=== PATIENT | female | born 1980 | race Caucasian/White ===

== ENCOUNTER 2017-03-06 22:16 | Emergency (ER) | payer MEDICARE ==
[~2017-03-06] VITALS: Ht 160 cm; Wt 130.0 kg
[2017-03-06] MEDS ORDERED: HYDROCODONE/ACE1 T11 PO (22:30)
[2017-03-06] MEDS ORDERED: XANAX1 MG PO (22:30)
[2017-03-06] MEDS ORDERED: BUSPAR5 MG PO (22:30)
[2017-03-06] MEDS ORDERED: ZOLOFT50 MG PO (22:31)
[2017-03-06] MEDS ORDERED: LIPITOR20 M1 PO (22:31)
[2017-03-06] MEDS ORDERED: ZESTRIL10 M1 PO (22:32)
[2017-03-06] MEDS ORDERED: ZANAFLEX2 MG PO (22:33)
[2017-03-06] MEDS ORDERED: ADDERALL10 MG PO (22:33)
[2017-03-06] MEDS ORDERED: CARVEDILOL3.125 MG PO (22:33)
[2017-03-06] MEDS ORDERED: ALLERGY RELF10 M5 PO (22:33)
[2017-03-06] MEDS ORDERED: OLANZAPINE5 MG PO (22:34)
[2017-03-06] MEDS ORDERED: NOVOLOG FL100 UNIT/M SC (22:35)
[2017-03-06] MEDS ORDERED: LEVEMIR100 UNIT/M SC (22:35)
[2017-03-06 23:04] LABS: URINE BILIRUBIN - DIPSTICK NEGATIVE (NEGATIVE); URINE BLOOD DIPSTICK NEGATIVE (NEGATIVE); URINE CLARITY SLIGHT CLOUDY; URINE COLOR YELLOW; URINE GLUCOSE - DIPSTICK >=1000 mg/dL (NEGATIVE); URINE KETONE NEGATIVE (NEGATIVE); URINE LEUK ESTERASE NEGATIVE (NEGATIVE); URINE NITRITE - DIPSTICK NEGATIVE (Negative); URINE PROTEIN - DIPSTICK NEGATIVE (NEG-TRACE); URINE UROBILINOGEN - DIPSTICK 0.2 E.U./dL (0.2)
[2017-03-06 23:35] LABS: HEMATOCRIT 43.6 % (37.0-47.0); HEMOGLOBIN 14.1 g/dl (12.0-16.0); IMMATURE GRANULOCYTES 0.4 % (0.0-1.0); MEAN CORPUSCULAR HGB 26.5 pG CALC (26.0-32.0); MEAN CORPUSCULAR HGB CONC 32.3 g/L CALC (32.0-36.0); NEUT# 10.56 thou/uL (2.00-7.15); RED BLOOD COUNT 5.32 mill/uL (4.20-5.60); RED CELL DISTRI WIDTH 13.4 % (11.5-15.5)
[2017-03-06 23:52] LABS: ALBUMIN 4.6 g/dL (3.2-5.0); ALKALINE PHOSPHATASE 102 u/l (38-126); AMYLASE 36 u/l (30-110); ANION GAP 20 (6-22 (CALC)); BILIRUBIN, TOTAL 0.5 mg/dL (0.0-1.4); BUN 7 mg/dL (7-17); BUN/CREATININE RATIO 11 (12-20 (CALC)); CARBON DIOXIDE 23 mmol/l (22-30); CHLORIDE 103 mmol/l (95-108); CREATININE 0.6 mg/dL (0.5-1.0); GFR > 60 ML/MIN (>=60 (CALC)); GFR FOR AFR.AMER. > 60 ML/MIN (>=60 (CALC)); GLUCOSE 151 mg/dL (65-105); LIPASE 43 u/l (23-300); POTASSIUM 4.2 mmol/l (3.5-5.1); SGOT/AST 23 u/l (14-36); SGPT/ALT 29 u/l (9-52); SODIUM 141 mmol/l (137-146); TOTAL PROTEIN 8.4 g/dL (6.3-8.2)
[2017-03-07 00:08] LABS: BETA-HCG, QUANT(RESULT NUMBER) <2 mIU/mL
[2017-03-07 01:27] VITALS: BP 124/63
== END 2017-03-07 01:35 | disposition home or self-care (01) ==
LOC: ED 22:16
PROVIDERS: Emergency Medicine
DX: R10.32 Left lower quadrant pain (principal); R10.31 Right lower quadrant pain; E11.9 Type 2 diabetes mellitus without complications; J45.909 Unspecified asthma, uncomplicated; F31.9 Bipolar disorder, unspecified; F41.9 Anxiety disorder, unspecified; G89.29 Other chronic pain; M54.9 Dorsalgia, unspecified; F17.210 Nicotine dependence, cigarettes, uncomplicated
CPT/HCPCS: Q9967

== ENCOUNTER 2019-01-17 21:06 | Emergency (ER) | payer MEDICARE ==
[~2019-01-17] VITALS: Ht 160 cm; Wt 124.2 kg
[~2019-01-17 21:06] MED LIST: ADDERALL10 MG PO; ALLERGY RELF10 M5 PO; BUSPAR5 MG PO; CARVEDILOL3.125 MG PO; HYDROCODONE/ACE1 T11 PO; LEVEMIR100 UNIT/M SC; LIPITOR20 M1 PO; NOVOLOG FL100 UNIT/M SC; OLANZAPINE5 MG PO; XANAX1 MG PO; ZANAFLEX2 MG PO; ZESTRIL10 M1 PO; ZOLOFT50 MG PO
[2019-01-17] MEDS ORDERED: PERCOCET 10/31 COMBO PO (21:23)
[2019-01-17] MEDS ORDERED: MORPHINE SUL30 M3 PO (21:24)
[2019-01-17] MEDS ORDERED: GABAPENTIN100 MG PO (21:25)
[2019-01-17] MEDS ORDERED: AMOXICILLIN500 M2 PO (21:39)
[2019-01-17 21:42] VITALS: BP 137/83
== END 2019-01-17 21:54 | disposition home or self-care (01) ==
LOC: ED 21:06
DX: K04.7 Periapical abscess without sinus (principal); K02.9 Dental caries, unspecified; E11.9 Type 2 diabetes mellitus without complications; I10 Essential (primary) hypertension; F17.200 Nicotine dependence, unspecified, uncomplicated

== ENCOUNTER 2019-02-04 10:10 | Emergency (ER) | payer MEDICARE ==
[~2019-02-04] VITALS: Ht 160 cm; Wt 119.2 kg
[~2019-02-04 10:10] MED LIST changes: +AMOXICILLIN500 M2 PO; +GABAPENTIN100 MG PO; +MORPHINE SUL30 M3 PO; +PERCOCET 10/31 COMBO PO
[2019-02-04 11:09] LABS: HEMATOCRIT 45.8 % (37.0-47.0); HEMOGLOBIN 14.5 g/dl (12.0-16.0); IMMATURE GRANULOCYTES 0.5 % (0.0-5.0); MEAN CELL VOLUME 79.9 fL CALC (80.0-100.0); MEAN CORPUSCULAR HGB 25.3 pG CALC (26.0-32.0); MEAN CORPUSCULAR HGB CONC 31.7 g/L CALC (32.0-36.0); NEUT# 9.34 thou/uL (2.00-7.15); RED BLOOD COUNT 5.73 mill/uL (4.20-5.60)
[2019-02-04 11:24] LABS: ALBUMIN 4.5 g/dL (3.2-5.0); ALKALINE PHOSPHATASE 95 u/l (38-126); AMYLASE 40 u/l (30-110); ANION GAP 18 (6-22 (CALC)); BILIRUBIN, TOTAL 0.5 mg/dL (0.0-1.4); BUN 9 mg/dL (7-17); BUN/CREATININE RATIO 19 (12-20 (CALC)); CARBON DIOXIDE 24 mmol/l (22-30); CHLORIDE 102 mmol/l (95-108); CREATININE 0.5 mg/dL (0.5-1.0); GFR > 60 ML/MIN (>=60 (CALC)); GFR FOR AFR.AMER. > 60 ML/MIN (>=60 (CALC)); LIPASE 38 u/l (23-300); POTASSIUM 4.3 mmol/l (3.5-5.1); SGOT/AST 14 u/l (14-36); SODIUM 139 mmol/l (137-146); TOTAL PROTEIN 7.3 g/dL (6.3-8.2)
[2019-02-04 14:11] LABS: URINE BILIRUBIN - DIPSTICK NEGATIVE (NEGATIVE); URINE BLOOD DIPSTICK NEGATIVE (NEGATIVE); URINE COLOR YELLOW; URINE GLUCOSE - DIPSTICK 500 mg/dL (NEGATIVE); URINE KETONE NEGATIVE (NEGATIVE); URINE LEUK ESTERASE NEGATIVE (NEGATIVE); URINE NITRITE - DIPSTICK NEGATIVE (Negative); URINE PH 5.5 (4.5-8.0); URINE PROTEIN - DIPSTICK TRACE mg/dL (NEG-TRACE); URINE SPECIFIC GRAVITY 1.015; URINE UROBILINOGEN - DIPSTICK 0.2 E.U./dL (0.2)
[2019-02-04 16:54] VITALS: BP 142/84
[2019-02-04] MEDS ORDERED: ONDANSETRON4 MG PO (17:12)
== END 2019-02-04 17:22 | disposition home or self-care (01) ==
LOC: ED 10:10
PROVIDERS: Emergency Medicine
DX: K52.9 Noninfective gastroenteritis and colitis, unspecified (principal); E87.2 Acidosis; E11.9 Type 2 diabetes mellitus without complications; I10 Essential (primary) hypertension; F17.210 Nicotine dependence, cigarettes, uncomplicated
CPT/HCPCS: Q9967

== ENCOUNTER 2019-02-20 19:35 | Emergency (ER) | payer MEDICARE ==
[~2019-02-20] VITALS: Ht 160 cm; Wt 118.0 kg
[~2019-02-20 19:35] MED LIST changes: +ONDANSETRON4 MG PO
[2019-02-20 20:38] LABS: HEMATOCRIT 43.3 % (37.0-47.0); HEMOGLOBIN 13.6 g/dl (12.0-16.0); MEAN CELL VOLUME 80.5 fL CALC (80.0-100.0); MEAN CORPUSCULAR HGB 25.3 pG CALC (26.0-32.0); MEAN CORPUSCULAR HGB CONC 31.4 g/L CALC (32.0-36.0); NEUT# 8.06 thou/uL (2.00-7.15); RED BLOOD COUNT 5.38 mill/uL (4.20-5.60); RED CELL DISTRI WIDTH 13.4 % (11.5-15.5)
[2019-02-20 20:51] LABS: ALKALINE PHOSPHATASE 105 u/l (38-126); ANION GAP 24 (6-22 (CALC)); BILIRUBIN, TOTAL 0.5 mg/dL (0.0-1.4); BUN 11 mg/dL (7-17); BUN/CREATININE RATIO 20 (12-20 (CALC)); CARBON DIOXIDE 21 mmol/l (22-30); CHLORIDE 100 mmol/l (95-108); CREATININE 0.6 mg/dL (0.5-1.0); GFR > 60 ML/MIN (>=60 (CALC)); GFR FOR AFR.AMER. > 60 ML/MIN (>=60 (CALC)); POTASSIUM 3.9 mmol/l (3.5-5.1); SGOT/AST 16 u/l (14-36); SODIUM 141 mmol/l (137-146); TOTAL PROTEIN 8.3 g/dL (6.3-8.2)
[2019-02-20] MEDS ORDERED: CEPHALEXIN500 M1 PO (20:57)
[2019-02-20] MEDS ORDERED: ROBITUSSIN AC10 ML PO (20:58)
[2019-02-20] MEDS ORDERED: MEDDOSEPAK PO (21:35)
[2019-02-20 21:55] VITALS: BP 134/80
== END 2019-02-20 21:56 | disposition home or self-care (01) ==
LOC: ED 19:35
PROVIDERS: Emergency Medicine
DX: J06.9 Acute upper respiratory infection, unspecified (principal); E11.9 Type 2 diabetes mellitus without complications; I10 Essential (primary) hypertension; F17.200 Nicotine dependence, unspecified, uncomplicated

== ENCOUNTER 2019-09-03 05:17 | Emergency (ER) | payer MEDICARE, MEDICAID ==
[~2019-09-03] VITALS: Ht 160 cm; Wt 100.0 kg
[~2019-09-03 05:17] MED LIST changes: +CEPHALEXIN500 M1 PO; +MEDDOSEPAK PO; +ROBITUSSIN AC10 ML PO
[2019-09-03] MEDS ORDERED: NAPROXEN500 MG PO (06:49)
[2019-09-03 07:01] VITALS: BP 98/56
== END 2019-09-03 07:03 | disposition home or self-care (01) ==
LOC: ED 05:17
DX: S93.602A Unspecified sprain of left foot, initial encounter (principal); E11.9 Type 2 diabetes mellitus without complications; I10 Essential (primary) hypertension; F17.210 Nicotine dependence, cigarettes, uncomplicated; W17.2XXA Fall into hole, initial encounter; Y92.007 Garden or yard of unspecified non-institutional (private) residence as the place of occurrence of the external cause

== ENCOUNTER 2019-11-30 | Emergency (ER) | payer MEDICARE, MEDICAID ==
[~2019-11-30] MED LIST changes: +NAPROXEN500 MG PO
[2019-11-30] MEDS ORDERED: PYRIDIUM200 MG PO (01:55)
[2019-11-30] MEDS ORDERED: ONDANSETRON4 MG PO (01:55)
[2019-11-30] MEDS ORDERED: CEPHALEXIN500 MG PO (01:55)
[2019-11-30 13:07] LABS: ALKALINE PHOSPHATASE 92 u/l (38-126); ANION GAP 19 (6-22 (CALC)); BILIRUBIN, TOTAL 0.6 mg/dL (0.0-1.4); BUN 12 mg/dL (7-17); BUN/CREATININE RATIO 16 (12-20 (CALC)); CARBON DIOXIDE 24 mmol/l (22-30); CHLORIDE 99 mmol/l (95-108); CREATININE 0.8 mg/dL (0.5-1.0); GFR > 60 ML/MIN (>=60 (CALC)); GFR FOR AFR.AMER. > 60 ML/MIN (>=60 (CALC)); LIPASE 26 u/l (23-300); POTASSIUM 3.8 mmol/l (3.5-5.1); SGOT/AST 19 u/l (14-36); SODIUM 138 mmol/l (137-146); TOTAL PROTEIN 8.7 g/dL (6.3-8.2)
[2019-11-30 13:12] LABS: HEMATOCRIT 44.3 % (37.0-47.0); HEMOGLOBIN 13.7 g/dl (12.0-16.0); IMMATURE GRANULOCYTES 0.4 % (0.0-5.0); MEAN CELL VOLUME 80.1 fL CALC (80.0-100.0); MEAN CORPUSCULAR HGB 24.8 pG CALC (26.0-32.0); MEAN CORPUSCULAR HGB CONC 30.9 g/L CALC (32.0-36.0); NEUT# 7.7 thou/uL (2.00-7.15); RED BLOOD COUNT 5.53 mill/uL (4.20-5.60); RED CELL DISTRI WIDTH 13.4 % (11.5-15.5)
[2019-11-30 13:24] LABS: URINE BILIRUBIN - DIPSTICK NEGATIVE (NEGATIVE); URINE GLUCOSE - DIPSTICK >=1000 mg/dL (NEGATIVE); URINE KETONE NEGATIVE (NEGATIVE); URINE LEUK ESTERASE NEGATIVE (NEGATIVE); URINE NITRITE - DIPSTICK NEGATIVE (Negative); URINE PROTEIN - DIPSTICK 100 mg/dL (NEG-TRACE); URINE SPECIFIC GRAVITY <=1.005; URINE UROBILINOGEN - DIPSTICK 0.2 E.U./dL (0.2)
[2019-11-30 13:25] LABS: URINE COLOR RED
[2019-11-30 13:28] LABS: URINE BLOOD DIPSTICK LARGE (NEGATIVE)
[2019-11-30 13:29] LABS: URINE RBC TNTC RBC/hpf (0-5)
[2019-11-30 13:30] LABS: URINE SQUAMOUS EPITHELIAL CELL FEW EPI/hpf (0-FEW)
== END 2019-11-30 15:41 | disposition home or self-care (01) ==
DX: R10.32 Left lower quadrant pain (principal); N39.0 Urinary tract infection, site not specified; E11.9 Type 2 diabetes mellitus without complications; I10 Essential (primary) hypertension; Z79.4 Long term (current) use of insulin; F17.210 Nicotine dependence, cigarettes, uncomplicated
CPT/HCPCS: Q9967

== ENCOUNTER 2019-11-30 | Emergency (ER) | payer MEDICARE, MEDICAID ==
[2019-11-30 01:34] LABS: URINE BILIRUBIN - DIPSTICK NEGATIVE (NEGATIVE); URINE BLOOD DIPSTICK LARGE (NEGATIVE); URINE GLUCOSE - DIPSTICK >=1000 mg/dL (NEGATIVE); URINE KETONE NEGATIVE (NEGATIVE); URINE LEUK ESTERASE TRACE (NEGATIVE); URINE PH 5.5 (4.5-8.0); URINE PROTEIN - DIPSTICK 100 mg/dL (NEG-TRACE); URINE SPECIFIC GRAVITY 1.015; URINE UROBILINOGEN - DIPSTICK 0.2 E.U./dL (0.2)
[2019-11-30 01:35] LABS: URINE NITRITE - DIPSTICK NEGATIVE (Negative)
[2019-11-30 01:38] LABS: URINE COLOR RED; URINE EPITHELIAL CELLS FEW EPI/hpf (0-FEW); URINE RBC TNTC RBC/hpf (0-5)
[2019-11-30 01:39] LABS: URINE BACTERIA MODERATE hpf
[2019-11-30] MEDS ORDERED: PYRIDIUM200 MG PO (01:55)
[2019-11-30] MEDS ORDERED: ONDANSETRON4 MG PO (01:55)
[2019-11-30] MEDS ORDERED: CEPHALEXIN500 MG PO (01:55)
== END 2019-11-30 02:42 | disposition home or self-care (01) ==
PROVIDERS: Emergency Medicine
DX: N39.0 Urinary tract infection, site not specified (principal); E11.9 Type 2 diabetes mellitus without complications; I10 Essential (primary) hypertension; F17.210 Nicotine dependence, cigarettes, uncomplicated; B96.20 Unspecified Escherichia coli [E. coli] as the cause of diseases classified elsewhere; Z79.4 Long term (current) use of insulin; R10.32 Left lower quadrant pain; R11.2 Nausea with vomiting, unspecified
CPT/HCPCS: Q9967

== ENCOUNTER 2019-12-18 | Emergency (ER) | payer MEDICARE, MEDICAID ==
[~2019-12-18] MED LIST changes: +CEPHALEXIN500 MG PO; +PYRIDIUM200 MG PO
[2019-12-18] MEDS ORDERED: ORPHENADRINE100 MG PO (21:01)
== END 2019-12-18 21:05 | disposition home or self-care (01) ==
DX: S76.911A Strain of unspecified muscles, fascia and tendons at thigh level, right thigh, initial encounter (principal); E11.9 Type 2 diabetes mellitus without complications; I10 Essential (primary) hypertension; F17.210 Nicotine dependence, cigarettes, uncomplicated; X58.XXXA Exposure to other specified factors, initial encounter; Z79.4 Long term (current) use of insulin

== ENCOUNTER 2021-07-14 16:19 | Emergency (ER) | payer MEDICARE, MEDICAID ==
[~2021-07-14] VITALS: Ht 160 cm; Wt 114.5 kg
[~2021-07-14 16:19] MED LIST changes: +ORPHENADRINE100 MG PO
[2021-07-14 19:50] VITALS: BP 146/89
== END 2021-07-14 19:50 | disposition home or self-care (01) ==
LOC: ED 16:19
DX: S80.11XA Contusion of right lower leg, initial encounter (principal); S40.021A Contusion of right upper arm, initial encounter; S40.011A Contusion of right shoulder, initial encounter; S16.1XXA Strain of muscle, fascia and tendon at neck level, initial encounter; S29.012A Strain of muscle and tendon of back wall of thorax, initial encounter; S39.012A Strain of muscle, fascia and tendon of lower back, initial encounter; E11.9 Type 2 diabetes mellitus without complications; I10 Essential (primary) hypertension; J45.909 Unspecified asthma, uncomplicated; F41.9 Anxiety disorder, unspecified; F31.9 Bipolar disorder, unspecified; F17.200 Nicotine dependence, unspecified, uncomplicated; W10.9XXA Fall (on) (from) unspecified stairs and steps, initial encounter; Y92.008 Other place in unspecified non-institutional (private) residence as the place of occurrence of the external cause; Z79.4 Long term (current) use of insulin

== ENCOUNTER 2021-08-02 15:24 | Emergency (ER) | payer MEDICARE, MEDICAID ==
[~2021-08-02] VITALS: Ht 160 cm; Wt 109.1 kg
[~2021-08-02 15:24] MED LIST changes: +MORPHINE SUL100 MG PO; -MORPHINE SUL30 M3 PO
[2021-08-02 16:47] LABS: HEMOGLOBIN 13.2 g/dl (12.0-16.0); IMMATURE GRANULOCYTES 0.3 % (0.0-5.0); MEAN CELL VOLUME 78.9 fL CALC (80.0-100.0); MEAN CORPUSCULAR HGB 24.2 pG CALC (26.0-32.0); MEAN CORPUSCULAR HGB CONC 30.7 g/dL CAL (32.0-36.0); NEUT# 1.94 thou/uL (2.00-7.15); RED BLOOD COUNT 5.45 mill/uL (4.20-5.60); RED CELL DISTRI WIDTH 13.6 % (11.5-15.5)
[2021-08-02 16:49] LABS: URINE BILIRUBIN - DIPSTICK SMALL (NEGATIVE); URINE BLOOD DIPSTICK LARGE (NEGATIVE); URINE COLOR YELLOW; URINE GLUCOSE - DIPSTICK NEGATIVE (NEGATIVE); URINE KETONE TRACE mg/dL (NEGATIVE); URINE LEUK ESTERASE NEGATIVE (NEGATIVE); URINE NITRITE - DIPSTICK NEGATIVE (Negative); URINE PROTEIN - DIPSTICK 100 mg/dL (NEG-TRACE); URINE SPECIFIC GRAVITY >=1.030; URINE UROBILINOGEN - DIPSTICK 0.2 E.U./dL (0.2)
[2021-08-02 16:52] LABS: ALBUMIN 4.8 g/dL (3.2-5.0); ALKALINE PHOSPHATASE 87 u/l (38-126); AMYLASE 50 u/l (30-110); ANION GAP 20 (6-22 (CALC)); BILIRUBIN, TOTAL 0.6 mg/dL (0.0-1.4); BUN 7 mg/dL (7-17); BUN/CREATININE RATIO 14 (12-20 (CALC)); CARBON DIOXIDE 24 mmol/l (22-30); CHLORIDE 103 mmol/l (95-108); CREATININE 0.5 mg/dL (0.5-1.0); GFR > 60 ML/MIN (>=60 (CALC)); GFR FOR AFR.AMER. > 60 ML/MIN (>=60 (CALC)); LIPASE 64 u/l (23-300); POTASSIUM 3.8 mmol/l (3.5-5.1); SGOT/AST 26 u/l (14-36); SODIUM 143 mmol/l (137-146); TOTAL PROTEIN 8.5 g/dL (6.3-8.2)
[2021-08-02 16:57] LABS: URINE AMORPH SEDIMENT FEW hpf (NONE-FEW); URINE RBC 25-50 RBC/hpf (0-5); URINE SQUAMOUS EPITHELIAL CELL FEW EPI/hpf (0-FEW); URINE WBC 0-2 WBC/hpf (0-5)
[2021-08-02] MEDS ORDERED: ZOFRAN4 MG/TAB PO (19:03)
[2021-08-02 19:30] VITALS: BP 140/80
== END 2021-08-02 20:10 | disposition home or self-care (01) ==
LOC: ED 15:24
DX: R10.84 Generalized abdominal pain (principal); R11.2 Nausea with vomiting, unspecified; R19.7 Diarrhea, unspecified; E11.9 Type 2 diabetes mellitus without complications; I10 Essential (primary) hypertension; J45.909 Unspecified asthma, uncomplicated; F41.9 Anxiety disorder, unspecified; F31.9 Bipolar disorder, unspecified; Z79.4 Long term (current) use of insulin
CPT/HCPCS: Q9967